=== PATIENT | female | born 1995 ===

== ENCOUNTER 2016-09-17 16:22 | Emergency (ER) | payer OTHER ==
[2016-09-17 16:32] VITALS: RESP 18
--- NOTE | 2016-09-17 16:44 | C.PDOC ---
History Of Present Illness 21F c/o intermittent vaginal spotting for the last week, initially bright red now darker. she stopped her current ocp 3 days ago she says due to side effects. she reports some pelvic discomfort mainly on the left side but says this has been ongoing for "months." she saw her pcp about 4 days ago for same complaint. she denies any concern for std. Time Seen by Provider: 09/17/16 16:43 Chief Complaint (Nursing): Abdominal Pain Past Medical History Vital Signs: Last Vital Signs Temp 98.5 F 09/17/16 18:22 Pulse 80 09/17/16 18:22 Resp 18 09/17/16 18:22 BP 100/65 09/17/16 18:22 Pulse Ox 98 09/17/16 18:22 Family History: States: Other Other Family History: nc - Social History Hx Alcohol Use: Yes Hx Substance Use: No - Immunization History Hx Tetanus Toxoid Vaccination: No Hx Influenza Vaccination: No Hx Pneumococcal Vaccination: No Review Of Systems Constitutional: Negative for: Fever Cardiovascular: Negative for: Chest Pain Respiratory: Negative for: Cough, Shortness of Breath Gastrointestinal: Negative for: Vomiting Genitourinary: Positive for: Vaginal Bleeding. Negative for: Dysuria, Frequency , Vaginal Discharge Neurological: Negative for: Weakness, Numbness Physical Exam - Physical Exam Appears: Well, Non-toxic, No Acute Distress Skin: Warm, Dry Eye(s): bilateral: PERRL Nose: No Epistaxis Cardiovascular: Rhythm Regular Respiratory: No Decreased Breath Sounds, No Accessory Muscle Use, No Rales, No Rhonchi, No Stridor, No Wheezing Gastrointestinal/Abdominal: Soft, No Tenderness, No Distention, No Guarding, No Rebound Neurological/Psych: Oriented x3, Other (no focal deficits) ED Course And Treatment - Laboratory Results Result Diagrams: 09/17/16 17:27 09/17/16 17:27 O2 Sat by Pulse Oximetry: 96 Disposition - Disposition Referrals: [facility] [Outside] Disposition: HOME/ ROUTINE Disposition Time: 18:09 Condition: GOOD Additional Instructions: Please follow up with an OBGYN doctor in the next week. Take ibuprofen as directed for pain. Return to the ER for any worsening symptoms, severe pain, fever, repeated vomiting, bleeding that requires at least 2 pads per hour for 2 hours or for any other concerns. Instructions: Dysfunctional Uterine Bleeding (ED) Forms: General Discharge Instructions - Clinical Impression Clinical Impression: Dysfunctional uterine bleeding
[2016-09-17 17:35] LABS: SQUAMOUS EPITHIAL 5 /hpf (0-5); URINE BILIRUBIN NEGATIVE (NEGATIVE); URINE CLARITY Clear (Clear); URINE COLOR Yellow (YELLOW); URINE GLUCOSE (UA) NORMAL (Normal); URINE LEUKOCYTE ESTERASE NEG Leu/uL (Negative); URINE NITRATE NEGATIVE (NEGATIVE); URINE PROTEIN NEGATIVE (NEGATIVE); URINE UROBILINOGEN NORMAL mg/dL (0.2-1.0)
[2016-09-17 17:40] LABS: ALBUMIN 3.8 g/dL (3.5-5.0); BASO % 0.5 % (0.0-2.0); EOS # 0.1 K/uL (0.0-0.7); EOS % 1.5 % (0.0-4.0); HCG,QUALITATIVE URINE NEGATIVE (NEGATIVE); HEMOGLOBIN 12.4 g/dL (11.0-16.0); LYMPH # 2.6 K/uL (1.0-4.3); LYMPH % 30.7 % (20.0-40.0); MEAN CELL VOLUME 94.1 fL (81.0-99.0); MEAN CORPUSCULAR HEMOGLOBIN 31.2 pg (27.0-31.0); MEAN CORPUSCULAR HGB CONC 33.2 g/dL (33.0-37.0); MEAN PLATELET VOLUME 7.7 fL (7.2-11.7); MONO # 0.7 K/uL (0.0-0.8); MONO % 8.4 % (0.0-10.0); NEUT # 4.9 K/uL (1.8-7.0); NEUT % 58.9 % (50.0-75.0); RBC 3.96 Mil/uL (3.80-5.20); RED CELL DISTRIBUTION WIDTH 12.4 % (11.5-14.5); URINE BLOOD NEGATIVE (NEGATIVE); WHITE BLOOD COUNT 8.4 K/uL (4.8-10.8)
[2016-09-17 17:42] LABS: GFR AFRICAN-AMERICAN > 60; GFR NON-AFRICAN AMERICAN > 60
[2016-09-17 17:43] LABS: ALB/GLOB RATIO 1.1 (1.0-2.1); ALT/SGPT 21 U/L (9-52); AST/SGOT 18 U/L (14-36); BLOOD UREA NITROGEN 15 mg/dL (7-17)
[2016-09-17 18:23] VITALS: BP 100/65; PULSE 80; TEMP 98.5
[2016-09-19 00:26] VITALS: O2SAT 96
== END 2016-09-17 18:27 | disposition home or self-care (01) ==
LOC: C.ER 16:22
DX: N93.8 Other specified abnormal uterine and vaginal bleeding (principal)